=== PATIENT | male | born 1960 | race Caucasian/White ===

== ENCOUNTER 2023-12-13 21:09 | Emergency (ER) | payer MEDICAID ==
[2023-12-13] MEDS: Ketorolac 30 MG/ML SDV IM ONE (21:32)
== END 2023-12-13 21:31 ==
LOC: VM.ED 21:09
DX: T83.9XXA Unspecified complication of genitourinary prosthetic device, implant and graft, initial encounter (principal); Z88.8 Allergy status to other drugs, medicaments and biological substances
CPT/HCPCS: 51702; 96372; 99283; 99284; J1885